=== PATIENT | male | born 1985 | race Caucasian/White ===

== ENCOUNTER → 2018-10-19 | Outpatient (REF) ==
--- NOTE | 2018-10-19 15:49 | REP ---
LUMBAR SPINE, SIX VIEWS: HISTORY: Degenerative joint disease. There is no acute fracture or subluxation. The L3-4 through L5-S1 intervertebral discs are decreased in height consistent with disc degeneration. An osteophyte is present on L5. IMPRESSION: Degenerative change as described above. Electronically Signed by Miguel Vega MD 10/19/2018 03:50 P
== END ==
LOC: M SMT 08:14
PROVIDERS: ATTEND Internal Medicine
DX: Z02.71 Encounter for disability determination (principal)